=== PATIENT | female | born 1995 | race Caucasian/White ===

== ENCOUNTER 2018-10-16 19:49 | Observation (INO) | payer SELFPAY ==
[~2018-10-16] VITALS: Ht 157.5 cm; Wt 95.7 kg
== END 2018-10-16 21:40 | disposition home or self-care (01) ==
LOC: 8 EST LDRP 19:49
PROVIDERS: ADMIT Obstetrics & Gynecology; ATTEND Obstetrics & Gynecology
DX: O46.90 Antepartum hemorrhage, unspecified, unspecified trimester (principal); Z3A.00 Weeks of gestation of pregnancy not specified
CPT/HCPCS: 76856; 99281; G0378